=== PATIENT | female | born 1945 | race African-American/Black ===

== ENCOUNTER 2017-11-25 14:32 | Emergency (ER) | payer MEDICARE, OTHER ==
[~2017-11-25] VITALS: Ht 154.9 cm; Wt 54.4 kg
[~2017-11-25 14:32] MED LIST: AMLODIPINE BESYL5 MG ORAL; ATORVASTATIN CA40 MG ORAL; AURALGAN OTIC1 DROP RIGHT EAR; COLACE100 MG ORAL; DIOVAN160 MG ORAL; GABAPENTIN300 MG ORAL; GABAPENTIN600 MG ORAL; HYDROCHLOROTHIA25 MG ORAL; IBUPROFEN600 MG ORAL; METOPROLOL TART50 MG ORAL; MOTRIN400 MG ORAL; NORCO1 EA ORAL; OXYCODONE HCL15 M1 ORAL; OXYCODONE HCL5 M2 ORAL; PANTOPRAZOLE SO40 MG ORAL; SOMA350 MG PO; ZITHROMAX250 MG ORAL
[2017-11-25 14:47] VITALS: BP 158/75
--- NOTE | 2017-11-25 15:16 | Emergency Room Report ---
History of Present Illness General Chief Complaint: Pain Source: Patient, Medical Record Present Illness HPI Patient just complains of pain to the right foot She reports that she was supposed to be having surgery tomorrow however she rescheduled it for next week Patient has had long-standing vascular problems And is describing having a bypass surgery Denies any calf pain denies any swelling denies any fall or trauma patient reports that she has had long-standing low back and leg pain and she has been coming for IM injections of pain medicine Patient also has pain management Denies any fevers or chills Denies any change in color of the foot Allergies: Coded Allergies: AMPICILLIN (Verified Allergy, Unknown, 12/24/10) LISINOPRIL (Verified Allergy, Unknown, 01/17/11) MORPHINE (Verified Allergy, Unknown, 12/24/10) PENICILLINS (Verified Allergy, Unknown, 12/24/10) ZOLPIDEM (Verified Allergy, Unknown, 01/17/11) Patient History Past Medical History: see triage record Pertinent Family History: none Reviewed Nursing Documentation: PMH: Agreed; PSxH: Agreed Nursing Documentation-PMH Past Medical History: No History, Except For Hx Cardiac Problems: Yes Hx Hypertension: Yes Hx Pacemaker: No Hx Asthma: No Hx COPD: No Hx Diabetes: No Hx Cancer: No Hx Gastrointestinal Problems: Yes Hx Dialysis: No Hx Neurological Problems: No Hx Cerebrovascular Accident: No Hx Seizures: No Review of Systems All Other Systems: negative except mentioned in HPI Physical Exam Vital Signs Date Time Temp Pulse Resp B/P (MAP) Pulse Ox O2 Delivery O2 Flow Rate FiO2 11/25/17 14:37 98.3 67 18 158/75 95 Room Air 98.2 Sp02 EP Interpretation: reviewed, normal General Appearance: well appearing, no apparent distress Head: normocephalic, atraumatic Eyes: bilateral eye PERRL ENT: normal pharynx Neck: supple Respiratory: lungs clear Cardiovascular #1: regular rate, rhythm Gastrointestinal: non tender, soft Genitourinary: no CVA tenderness Musculoskeletal: normal inspection, other - Neurovascularly intact, good pulses patient is tender on slight touch of all toes Neurologic: alert, oriented x3 Skin: no rash Lymphatic: no adenopathy Medical Decision Making Diagnostic Impression: Primary Impression: foot pain Additional Impression: Vasculitic neuropathy ER Course Patient presents with fairly chronic pathology to her presentation Patient requesting IM injection It appears the patient has had kidney problems in the past Toradol is not appropriate for this patient at this time Patient also has appropriate pain management has multispecialty follow-up and is appropriate for close follow-up Last Vital Signs Date Time Temp Pulse Resp B/P (MAP) Pulse Ox O2 Delivery O2 Flow Rate FiO2 11/25/17 15:09 98.2 18 158/75 95 Room Air 208.8 11/25/17 14:37 67 Status: improved Disposition: HOME, SELF-CARE Condition: Improved Referrals: DANNY ADDISON (PCP) Patient Instructions: Vasculitis Additional Instructions: Patient is provided with the discharge instructions notified to follow up with primary doctor in the next 2-3 days otherwise return to the er with any worsening symptoms. Please note that this report is being documented using [employer] technology. This can lead to erroneous entry secondary to incorrect interpretation by the dictating instrument. Millie Bull DO November 25, 2017 15:16
== END 2017-11-25 15:10 | disposition home or self-care (01) ==
LOC: EMR 15:08
DX: M79.671 Pain in right foot (principal); G62.9 Polyneuropathy, unspecified
CPT/HCPCS: 99282